=== PATIENT | male | born 1930 ===

== ENCOUNTER → 2017-02-10 | Outpatient (REF) ==
[2017-02-10 20:21] LABS: THYROID STIMULATING HORMONE 1.34 uIU/mL (0.465-4.680)
== END ==
LOC: ZLAB.WCH 19:29
PROVIDERS: Family Medicine
DX: Z01.89 Encounter for other specified special examinations (principal)

== ENCOUNTER → 2018-07-04 | Outpatient (REF) | LOC: ZLAB.WCH 09:20 | DX: Z01.89 Encounter for other specified special examinations (principal) ==